=== PATIENT | male | born 1960 | race Caucasian/White ===

== ENCOUNTER 2017-05-23 12:17 | Emergency (ER) | payer MEDICAID ==
[~2017-05-23] VITALS: Ht 177.8 cm; Wt 137.6 kg
[2017-05-23 13:57] VITALS: BP 148/92
== END 2017-05-23 13:57 | disposition home or self-care (01) ==
LOC: ED 12:17
DX: M54.42 Lumbago with sciatica, left side (principal)
CPT/HCPCS: J2270; Q0162